=== PATIENT | male | born 1995 | race Caucasian/White ===

== ENCOUNTER 2016-04-01 05:39 | Emergency (ER) | payer BC ==
[~2016-04-01] VITALS: Ht 180.3 cm; Wt 110.0 kg
[~2016-04-01 05:39] MED LIST: ARIP2TAB3 PO; BUPRTAB51 PO; LITH600C PO; LTHSR/300 PO
[2016-04-01 05:45] VITALS: TEMP 37; Ht 180.3 cm; Wt 110.0 kg
[2016-04-01] MEDS ORDERED: SODIUM CHLORIDE 0.9% 1000ML 1,000 ML IV STA (05:50)
[2016-04-01] MEDS ORDERED: ALUMINUM/MAGNESIUM SUSP 30 ML UDC PO STA (05:50)
[2016-04-01] MEDS ORDERED: ONDANSETRON INJ 2 MG/ML 2 ML VIAL IV STA (05:50)
[2016-04-01] MEDS ORDERED: LIDOCAINE HCL 2% VISC SOLN 20 ML UDC PO STA (05:50)
[2016-04-01] MEDS ORDERED: ONDANSETRON HOME PACK 4MG OD TAB PO ONE (06:00)
[2016-04-01] MEDS ORDERED: ALPR-411 PO (06:12)
[2016-04-01] MEDS ORDERED: LAMO100T16 PO ×2 (06:13)
[2016-04-01 06:15] LABS: BASO % 0.2 %; BASO ABS # 0.03 K/uL (0-0.2); COMPLETE YES; EOS % 1.8 %; HEMATOCRIT 41.9 % (42-52); IG% 0.3 %; LYMPH ABS # 1.17 K/uL (1.2-3.4); MEAN CELL VOLUME 83.1 fL (80-100); MEAN CORPUSCULAR HEMOGLOBIN 28.6 pg (25-34); MEAN CORPUSCULAR HGB CONC 34.4 g/dl (32-36); MEAN PLATELET VOLUME 9.5 fL (7.4-10.4); MONO % 8.9 %; NEUT % 80.8 %; PLATELET COUNT 380 K/uL (130-400); RED BLOOD COUNT 5.04 M/uL (4.7-6.1); WHITE BLOOD COUNT 14.67 K/uL (4.8-10.8)
[2016-04-01 06:32] LABS: BUN/CREATININE RATIO 17.5 (10-20); CALCIUM 8.7 mg/dl (8.5-10.1); CREATININE 1.1 mg/dl (0.60-1.40); POTASSIUM 4.3 mmol/L (3.5-5.1)
--- NOTE | 2016-04-01 06:35 | EMERGENCY ROOM VISIT NOTE ---
History First contact with patient: 05:46 Chief Complaint: VOMITING Stated Complaint: NAUSEA/VOMITING History of Present Illness The patient is a 21 year old male who presents to the Emergency Room with complaints of nausea and vomiting and upset stomach for the past few hours. Patient denies chest pain, dyspnea, fever, chills, diarrhea, urinary symptoms, back pain. No recent antibiotics. Other people at the [facility] are sick. Review of Systems See HPI for pertinent positives & negatives. A total of 10 systems reviewed and were otherwise negative. Past Medical/Surgical History Bipolar Social History Smoking Status: Never Smoker Smokeless Tobacco Use: No Drug Use: none Marital Status: single Occupation Status: [employer] student Current/Historical Medications Scheduled Alprazolam (Xanax), 0.5 MG PO HS Bupropion Hcl (Wellbutrin Xl), 300 MG PO QAM Lamotrigine (Lamictal), 100 MG PO HS Lamotrigine (Lamictal), 50 MG PO QAM Allergies Coded Allergies: Cefadroxil (Verified Allergy, Mild, Rash, 04/01/16) Sulfamethoxazole w/Trimethoprim (Verified Allergy, Mild, Rash, 04/01/16) Physical Exam Vital Signs Date Time Temp Pulse Resp B/P Pulse Ox O2 Delivery O2 Flow Rate FiO2 04/01/16 05:45 37.0 104 18 153/90 96 Room Air Physical Exam VITALS: Vitals are noted on the nurse's note and reviewed by myself. Vital signs stable. GENERAL: Pleasant male, in no acute distress, nondiaphoretic, well-developed well-nourished. SKIN: The skin was without rashes, erythema, edema, or bruising. There is no tenting of the skin. Capillary reflex less than 2 seconds. HEAD: Normocephalic atraumatic. EARS: External auditory canals clear, tympanic membranes pearly daniels without erythema or effusion bilaterally. EYES: Pupils equal round and reactive to light and accommodation. Conjunctivae without injection, sclerae without icterus. Extraocular movements intact. NOSE: Patent, turbinates without inflammation or discharge. MOUTH: Mucous membranes mildly dry. Pharynx without erythema or exudate. Uvula midline. Airway patent. Tongue does not deviate. NECK: Supple without nuchal rigidity. No lymphadenopathy. No thyromegaly. Cervical spine is nontender. No JVD. HEART: Regular rate and rhythm without murmurs gallops or rubs. LUNGS: Clear to auscultation bilaterally without wheezes, rales or rhonchi. No dullness to percussion. No retractions or accessory muscle use. ABDOMEN: Positive bowel sounds x 4. Normal tympanic percussion. Soft, nontender, without masses or organomegaly. Gaytan sign negative. No guarding or rebound tenderness. MUSCULOSKELETAL: No muscle atrophy, erythema, or edema noted. NEURO: Patient was alert and oriented to person place and time. Normal sensation to light and sharp touch. No focal neurological deficits. Medical Decision & Procedures Laboratory Results 04/01/16 06:00 Red Blood Count 5.04, Mean Corpuscular Volume 83.1, Mean Corpuscular Hemoglobin 28.6, Mean Corpuscular Hemoglobin Concent 34.4, Mean Platelet Volume 9.5, Neutrophils (%) (Auto) 80.8, Lymphocytes (%) (Auto) 8.0, Monocytes (%) (Auto) 8.9, Eosinophils (%) (Auto) 1.8, Basophils (%) (Auto) 0.2, Neutrophils # (Auto) 11.87, Lymphocytes # (Auto) 1.17, Monocytes # (Auto) 1.30, Eosinophils # (Auto) 0.26, Basophils # (Auto) 0.03 04/01/16 06:00 Test 04/01/16 06:00 White Blood Count 14.67 K/uL (4.8-10.8) Red Blood Count 5.04 M/uL (4.7-6.1) Hemoglobin 14.4 g/dL (14.0-18.0) Hematocrit 41.9 % (42-52) Mean Corpuscular Volume 83.1 fL (80-100) Mean Corpuscular Hemoglobin 28.6 pg (25-34) Mean Corpuscular Hemoglobin Concent 34.4 g/dl (32-36) Platelet Count 380 K/uL (130-400) Mean Platelet Volume 9.5 fL (7.4-10.4) Neutrophils (%) (Auto) 80.8 % Lymphocytes (%) (Auto) 8.0 % Monocytes (%) (Auto) 8.9 % Eosinophils (%) (Auto) 1.8 % Basophils (%) (Auto) 0.2 % Neutrophils # (Auto) 11.87 K/uL (1.4-6.5) Lymphocytes # (Auto) 1.17 K/uL (1.2-3.4) Monocytes # (Auto) 1.30 K/uL (0.11-0.59) Eosinophils # (Auto) 0.26 K/uL (0-0.5) Basophils # (Auto) 0.03 K/uL (0-0.2) RDW Standard Deviation 39.0 fL (36.4-46.3) RDW Coefficient of Variation 13.1 % (11.5-14.5) Immature Granulocyte % (Auto) 0.3 % Immature Granulocyte # (Auto) 0.04 K/uL (0.00-0.02) Anion Gap 8.0 mmol/L (3-11) Est Creatinine Clear Calc Drug Dose 135.1 ml/min Estimated GFR () 111.4 Estimated GFR (Non- 96.1 BUN/Creatinine Ratio 17.5 (10-20) Calcium Level 8.7 mg/dl (8.5-10.1) Medications Administered Medications (Trade) Dose Ordered Sig/Elis Route Start Time Stop Time Status Last Admin Dose Admin Sodium Chloride (Nss 1000ml) 1,000 ml @ 999 mls/hr Q1H1M STAT IV 04/01/16 05:50 04/01/16 06:50 04/01/16 06:01 999 MLS/HR Ondansetron HCl (Zofran Inj) 4 mg NOW STAT IV 04/01/16 05:50 04/01/16 05:51 DC 04/01/16 06:01 4 MG Lidocaine HCl (Viscous Lidocaine 2% Soln) 10 ml NOW STAT PO 04/01/16 05:50 04/01/16 05:52 DC 04/01/16 06:00 10 ML Al Hydroxide/Mg Hydroxide (Maalox Susp) 30 ml NOW STAT PO 04/01/16 05:50 04/01/16 05:52 DC 04/01/16 06:00 30 ML Ondansetron HCl (ZOFRAN ODT 4MG Home Pack) 1 homepack UD ONCE PO 04/01/16 06:00 04/01/16 06:01 DC 04/01/16 06:00 1 HOMEPACK ED Course Prior records/ancillary studies reviewed. Triage Nursing notes reviewed. The patient's history was concerning for nausea, vomiting Differential diagnosis: Etiologies such as gastritis, anxiety, food borne illness, infections, appendicitis, diverticulitis, inflammatory bowel disease, obstruction, GI bleed , biliary pathology, as well as others were entertained. Physical examination findings: As above. Abdominal examination revealed no tenderness. Vital signs reviewed and revealed stable. ER treatment provided: IV hydration 1 L NSS. Zofran, GI cocktail On reassessment the patient felt better. Patient was tolerating p.o. intake. Diagnostics interpretation by me: The labs revealed leukocytosis, most likely marginalization from vomiting. No worrisome electrolyte abnormality This appears to be consistent with vomiting most likely viral in etiology. Patient felt much better after being medicated as above. He did not have an acute abdomen on exam. He is tolerating fluids. He is advised to do clear liquid diet today and then progress as tolerated to bland diet tomorrow. He was advised to follow-up health services in a few days or here in the ER sooner for high fevers, vomiting, abdominal pain, worsening signs or symptoms or as needed.. By the evaluation outlined above emergent etiologies such as appendicitis, diverticulitis, obstruction, cardiac sources, mesenteric ischemia , aortic pathology, inflammatory bowel disease, renal colic, PUD, biliary pathology, UTI, as well as others were deemed relatively unlikely. The pt informed about the findings as listed above. All questions were answered and pleased with the treatment. Return instructions were outlined and the patient was discharged in stable condition. Outpatient prescription management: zofran Referral: The patient was referred to their primary care physician for follow-up in 2 to 3 days for a recheck of the current condition. Medical Decision As above Impression Primary Impression: Vomiting Departure Information Dispostion Home / Self-Care Condition GOOD Referrals [facility] (PCP) Patient Instructions My [facility] Additional Instructions DO NOT drive, drink alcohol, operate machinery, or perform dangerous activities today. You were given medications in the ER that can affect your ability to safely function or operate a vehicle. Zofran(odansetron) tablets 4mg: Take one and allow it to dissolve in your mouth every four to six hours as needed for nausea or vomiting. Rest and drink plenty of fluids as tolerated. Slow sips of water or sports drinks are recommended instead of large amounts all at once. Continue current medications. Once your stomach is settled start with a clear liquid diet (jello, soup broth, etc.) and then advance as tolerated. You should avoid full, heavy meals for about 24 hrs from the time your symptoms resolved. Return to the ER for persistent vomiting, fevers, abdominal pain, chest pains, difficulty breathing, black or bloody stools, worsening of your condition, or as needed. Follow up with your primary physician in 2-3 days for a recheck of your current condition. Problem Qualifiers Primary Impression: Vomiting Vomiting type: unspecified Vomiting Intractability: non-intractable Nausea presence: with nausea Qualified Codes: R11.2 - Nausea with vomiting, unspecified
[2016-04-01 06:48] VITALS: BP 147/85; PULSE 94; O2SAT 99
[2016-04-01] MEDS ORDERED: ONDA4TAB10 SL (21:30)
== END 2016-04-01 06:50 | disposition home or self-care (01) ==
LOC: C.EDA 05:39 → EDBD 05:39 → C.EDA 06:50
DX: R11.10 Vomiting, unspecified (principal); F31.9 Bipolar disorder, unspecified; Z79.899 Other long term (current) drug therapy; Z88.2 Allergy status to sulfonamides; Z88.8 Allergy status to other drugs, medicaments and biological substances

== ENCOUNTER 2016-04-01 20:33 | Emergency (ER) | payer BC ==
[~2016-04-01] VITALS: Ht 180.3 cm; Wt 110.7 kg
[~2016-04-01 20:33] MED LIST changes: +ALPR-411 PO; +LAMO100T16 PO
[2016-04-01 20:49] VITALS: Ht 180.3 cm; Wt 110.7 kg
[2016-04-01] MEDS ORDERED: ONDA4TAB10 SL (21:30)
[2016-04-01] MEDS ORDERED: IBUPROFEN 800 MG TAB PO STA (21:42)
[2016-04-01] MEDS ORDERED: ACETAMINOPHEN 500 MG TAB PO STA (21:42)
[2016-04-01] MEDS ORDERED: ONDANSETRON 4MG OD TAB PO ONE (21:45)
[2016-04-01] MEDS ORDERED: IBUPROFEN 200 MG TAB ONE (21:50)
[2016-04-01] MEDS ORDERED: IBUPROFEN 600 MG TAB ONE (21:51)
[2016-04-01 22:02] VITALS: TEMP 38.5
[2016-04-01 23:48] VITALS: BP 130/64; PULSE 89; O2SAT 98
[2016-04-01 23:56] LABS: INFLUENZA A PCR Neg for Influ A (NEG); INFLUENZA B PCR Neg for Influ B (NEG)
--- NOTE | 2016-04-02 00:10 | EMERGENCY ROOM VISIT NOTE ---
History First contact with patient: 21:27 Chief Complaint: ILLNESS Stated Complaint: REVISIT FROM EARLIER TODAY; NAUSEA, CHILLS, DIZZ History of Present Illness The patient is a 21 year old male who presents to the Emergency Room with complaints of nausea, fever, lightheadedness for the past day. Patient states he did not take the Zofran from this morning. He felt much better after being discharged this morning until tonight he felt nauseous and lightheaded and had a fever. He did not take anything for his symptoms. He was discharged with Zofran. Patient states he was unsure if he should take this or not. Patient denies current vomiting, chest pain, dyspnea, abdominal pain, diarrhea, neck stiffness, sore throat, cough. Review of Systems See HPI for pertinent positives & negatives. A total of 10 systems reviewed and were otherwise negative. Past Medical/Surgical History Bipolar, anxiety, depression Social History Smoking Status: Never Smoker Drug Use: none Marital Status: single Occupation Status: [employer] student Current/Historical Medications Scheduled Alprazolam (Xanax), 0.5 MG PO HS Bupropion Hcl (Wellbutrin Xl), 300 MG PO QAM Lamotrigine (Lamictal), 100 MG PO HS Lamotrigine (Lamictal), 50 MG PO QAM Scheduled PRN Ondasetron Odt (Zofran Odt), 4 MG SL Q4-6HRS PRN for Nausea Allergies Coded Allergies: Cefadroxil (Verified Allergy, Mild, Rash, 04/01/16) Sulfamethoxazole w/Trimethoprim (Verified Allergy, Mild, Rash, 04/01/16) Physical Exam Vital Signs Date Time Temp Pulse Resp B/P Pulse Ox O2 Delivery O2 Flow Rate FiO2 04/01/16 23:48 89 20 130/64 98 Room Air 04/01/16 22:02 38.5 105 20 119/59 96 Room Air 04/01/16 20:49 38.3 126 22 130/75 97 Room Air Physical Exam VITALS: Vitals are noted on the nurse's note and reviewed by myself. Vital signs febrile GENERAL: Pleasant male drinking water, in no acute distress, nondiaphoretic, well-developed well-nourished. SKIN: The skin was without rashes, erythema, edema, or bruising. There is no tenting of the skin. Capillary reflex less than 2 seconds. HEAD: Normocephalic atraumatic. EARS: External auditory canals clear, tympanic membranes pearly daniels without erythema or effusion bilaterally. EYES: Pupils equal round and reactive to light and accommodation. Conjunctivae without injection, sclerae without icterus. Extraocular movements intact. NOSE: Patent, turbinates without inflammation or discharge. No sinus tenderness. MOUTH: Mucous membranes mildly dry. Pharynx without erythema or exudate. Uvula midline. Airway patent. Tongue does not deviate. NECK: Supple without nuchal rigidity. No lymphadenopathy. No thyromegaly. Cervical spine is nontender. No JVD. HEART: Regular rate and rhythm without murmurs gallops or rubs. LUNGS: Clear to auscultation bilaterally without wheezes, rales or rhonchi. No dullness to percussion. No retractions or accessory muscle use. ABDOMEN: Positive bowel sounds x 4. Normal tympanic percussion. Soft, nontender, without masses or organomegaly. Gaytan sign negative. No guarding or rebound tenderness. MUSCULOSKELETAL: No muscle atrophy, erythema, or edema noted. NEURO: Patient was alert and oriented to person place and time. Normal sensation to light and sharp touch. No focal neurological deficits. Medical Decision & Procedures Laboratory Results Test 04/01/16 21:45 Influenza Type A (RT-PCR) Neg for Influ A (NEG) Influenza Type A Antigen Neg for Influ A (NEG) Influenza Type B Antigen Neg for Influ B (NEG) Influenza Type B (RT-PCR) Neg for Influ B (NEG) Medications Administered Medications (Trade) Dose Ordered Sig/Elis Route Start Time Stop Time Status Last Admin Dose Admin Acetaminophen (Tylenol Tab) 1,000 mg NOW STAT PO 04/01/16 21:42 04/01/16 21:43 DC 04/01/16 21:55 1,000 MG Ondansetron HCl (Zofran Odt) 4 mg ONE ONCE PO 04/01/16 21:45 04/01/16 21:46 DC 04/01/16 21:57 4 MG Ibuprofen (Advil Tab) 200 mg STK-MED ONCE .ROUTE 04/01/16 21:50 04/01/16 21:53 DC 04/01/16 21:56 200 MG Ibuprofen (Motrin Tab) 600 mg STK-MED ONCE .ROUTE 04/01/16 21:51 04/01/16 21:53 DC 04/01/16 21:57 600 MG ED Course Prior records/ancillary studies reviewed. Triage Nursing notes reviewed. Additional history obtained from friends The patient's history was concerning for fever. Differential diagnosis: Etiologies such as viral syndrome, otitis, pharyngitis, pneumonia, influenza, meningitis, urinary tract infection, sepsis, bacteremia, as well as others were entertained. Physical examination: Patient is alert, interactive and well-appearing ER treatment provided: Tylenol, Motrin, Gatorade, Zofran On reassessment the patient felt better. Diagnostics interpreted by me: The labs revealed neg flu This appears to be consistent with fever most likely viral in etiology. Patient was well-appearing. He was tolerating fluids. No signs of meningitis. He did not have an acute abdomen on exam. He was advised to take medications as directed, stay well-hydrated and to follow-up with health services in a few days or here in the ER sooner for high fevers, lethargy, vomiting, worsening signs or symptoms or as needed. By the evaluation outlined above emergent etiologies such as otitis, pharyngitis, pneumonia, meningitis, urinary tract infection, sepsis, bacteremia, as well as others were deemed relatively unlikely. The pt informed about the findings as listed above. All questions were answered and pleased with the treatment. Return instructions were outlined and the patient was discharged in stable condition. Outpatient prescription management: Zofran Referral: The patient was referred back to their primary care physician for follow-up in 2 to 3 days for a recheck of the current condition. Medical Decision as above Impression Primary Impression: Fever Additional Impression: Nausea Departure Information Dispostion Home / Self-Care Condition GOOD Referrals [facility] (PCP) Patient Instructions [facility] Additional Instructions Zofran(odansetron) tablets 4mg: Take one and allow it to dissolve in your mouth every four to six hours as needed for nausea or vomiting. Acetaminophen(Tylenol) may be used for fever or pain. Use 1000mg every six hours as needed. Avoid using more than 3000mg in a 24 hour period. (AND/OR) Ibuprofen(Motrin, Advil) may be used for fever or pain. Use 600mg every six hours as needed. Take with food. Avoid using more than 2400mg in a 24 hour period. Do not use 2400mg per day for more than three consecutive days without physician direction. Prolonged inappropriate use can lead to stomach upset or ulcers. Rest and drink plenty of fluids. Controlling your fever with Tylenol and Ibuprofen as above will make you feel better. Wash your hands after nose blowing, sneezing, or coughing. Most germs are spread through contact, therefore improper hygiene may result in your close contacts and loved ones becoming ill just like you. Continue current medications. Return to the ER for severe headache, neck stiffness, chest pain, difficulty breathing, fevers, vomiting, worsening of your condition, or as needed. Follow up with your primary physician this week for a recheck of your current condition. Problem Qualifiers Primary Impression: Fever Fever type: unspecified Qualified Codes: R50.9 - Fever, unspecified
[2016-04-02] MEDS ORDERED: ONDANSETRON HOME PACK 4MG OD TAB PO ONE (00:15)
== END 2016-04-02 00:18 | disposition home or self-care (01) ==
LOC: C.EDB 20:34 → C.EDC 04-02 00:18
DX: R50.9 Fever, unspecified (principal); R11.0 Nausea; F31.9 Bipolar disorder, unspecified; F41.9 Anxiety disorder, unspecified; Z79.899 Other long term (current) drug therapy

== ENCOUNTER 2018-07-18 16:17 | Inpatient (IN) ==
[2018-07-18 17:43] LABS: Basophils # (auto) 0.06 K/uL (0-0.2); Basophils % (auto) 0.7 %; Eosinophils # (auto) 0.37 K/uL (0-0.5); Hematocrit (blood only) 40.4 % (42-52); Hemoglobin 13.9 g/dL (14.0-18.0); Immature Granulocytes # (auto) 0.04 K/uL (0.00-0.02); Immature Granulocytes % (auto) 0.4 %; Lymphocytes % (auto) 34.7 %; Mean Corpuscular Hgb Conc 34.4 g/dL (32-36); Mean Corpuscular Volume 83.3 fL (80-100); Mean Platelet Volume 9.5 fL (7.4-10.4); Monocytes # (auto) 0.83 K/uL (0.11-0.59); Neutrophils # (auto) 4.72 K/uL (1.4-6.5); Neutrophils % (auto) 51.2 %; Platelet Count 397 K/uL (130-400); RDW Standard Deviation 39.1 fL (36.4-46.3); Red Blood Count 4.85 M/uL (4.7-6.1); White Blood Count 9.22 K/uL (4.8-10.8)
[2018-07-18 17:48] LABS: Appearance Urine Clear (Clear); Bilirubin Urine Negative (Negative); Blood Urine Negative (Negative); Color Urine Yellow; Glucose Urine UA Negative (Negative); Ketones Urine Negative (Negative); Leukocyte Esterase Urine Negative (Negative); Nitrite Urine Negative (Negative); Protein Urine Negative (Negative); Specific Gravity Urine 1.018 (1.000-1.030); Urobilinogen Urine Negative (Negative); pH Urine 5.5 (4.5-7.5)
[2018-07-18 18:00] LABS: BUN Creatinine Ratio 14.9 (10-20); C Reactive Protein 1.12 mg/dl (0-0.29); Calcium 9.2 mg/dl (8.5-10.1); Est GFR (African American) 124.8; Est GFR (Non-African American) 107.7; Magnesium 2.3 mg/dl (1.8-2.4); Potassium 4.2 mmol/L (3.5-5.1)
[2018-07-18 18:14] LABS: Albumin Globulin Ratio 1.1 (0.9-2); Bilirubin,Total 0.2 mg/dl (0.2-1); Globulin 3.8 gm/dl (2.5-4.0); Total Protein 7.8 gm/dl (6.4-8.2)
[2018-07-18] MEDS ORDERED: SODIUM CHLORIDE 0.9% 1000ML 2,000 ML IV ONE (18:53)
[2018-07-18] MEDS ORDERED: SODIUM CHLORIDE 0.9% 1000ML 1,000 ML IV STA (18:53)
[2018-07-18 19:16] LABS: Lyme Ab IgG w/WB Rflx Negative (Negative); Lyme Ab IgM w/WB Rflx Negative (Negative)
[2018-07-18] MEDS ORDERED: ALBUTEROL HFA 8 GM INHALER INH PRN (20:00)
--- NOTE | 2018-07-18 20:38 | History & Physical Report ---
Date of Service July 18, 2018 Assessment & Plan (1) Rhabdomyolysis: Patient is a [facility] 23yo M PMH bipolar, anxiety, obesity, who presents with lower leg pain, admitted for rhabdomyolysis in the setting of psychiatric med use, nonspecific EKG changes. Rhabdoymyolysis -Mild, NSS @200/hr -Repeat CK in AM -Tylenol for pain -Unlikely to be related to lupus, pt has no other symptoms of lupus...will send ARJUN and Antiphospholipid antibodies in AM Anxiety/Bipolar -Continue bupropion, hydroxyzine, lamictal Non-specific EKG changes -Appears chronic, denies chest pain, no friction rub noted on exam -Repeat EKG ordered for tomorrow AM Code: full Dispo: med/surg DVTP: ambulation, consider SCDs if pt unable to ambulate (2) Anxiety: (3) Bipolar disorder: (4) Nonspecific ST-T wave electrocardiographic changes: History of Present Illness Chief Complaint: Leg pain Primary Care Provider: [facility] Patient is a [facility] 23yo M [facility] bipolar, anxiety, obesity, who presents with lower leg pain for 2 months. He presented today due to increasing pain on anterior shins from his knee to the top of his feet. He notes this is worsened with activity (walking). He does note some LUE generalized pain as well. Denies trauma to the area. He notes that he is being weaned from lamictal and that his psychiatrist recommended he present to the ER for concerns of drug-induced lupus. Labwork revealed an elevated CK of 1200, CRP of 1.12, and normal LFTs. He denies dark urine. He states this is his 3rd episode of rhabdomyolysis in the past 7 months, and was told by psychiatrist that his gabapentin was previously the cause of this, which he is no longer taking. Allergies Allergy/AdvReac Type Severity Reaction Status Date / Time Bactrim Allergy Mild Rash Verified 04/01/16 06:09 cefadroxil Allergy Mild Rash Verified 07/18/18 17:45 sulfamethoxazole Allergy Mild Rash Verified 07/18/18 17:45 trimethoprim Allergy Mild Rash Verified 07/18/18 17:45 gabapentin AdvReac Severe rhabdomyoly Unverified 07/18/18 17:45 [facility] Home Medications Home Medications Medication Instructions Recorded Confirmed Type hydroxyzine pamoate [Vistaril] 100 mg PO HS PRN 11/25/17 07/18/18 History lamotrigine [Lamictal] 100 mg PO BID 11/25/17 07/18/18 History albuterol sulfate 1 inha INH Q6H #8 gm 12/12/17 07/18/18 Rx bupropion HCl 300 mg PO QAM 12/12/17 07/18/18 History lurasidone [Latuda] 40 mg PO HS 07/18/18 07/18/18 History Past Med/Surg History Medical History Anxiety Abnormal LFTs Rhabdomyolysis (Acute) Hx of bipolar disorder Hx of bronchitis Hx of recurrent pneumonia No acute medical problems No significant past surgical history Family History Other No significant family history Social History Preferred Language: Sami Communication Ability: Effective Community Relations Rep Required: No Beliefs That Will Affect Care: None Current Living Situation: Other Current Living Situation Comment: [facility] with one roommate Other Information That Helps Us Care for You: No Feels Safe at Home: Yes Safety Concerns: Feels Safe At This Time Smoking Status: Never smoker Do You Dip or Chew Tobacco: No Second Hand Exposure: No Hx Alcohol Use: No (quit in August 2017) Hx Substance Use: No Review of Systems Review of Systems: All systems reviewed & are unremarkable except as noted in HPI & below Constitutional: + chills and + body aches; no fever Eyes: no diplopia, no dry eyes and no spots in vision Ear, Nose, Mouth, Throat: no mouth lesions, no dry mouth, no dental caries and no pain with swallowing Respiratory: no cough, no chest congestion and no dyspnea Cardiovascular: no chest pain, no radiating jaw, neck or arm pain, no dyspnea and no calf pain Gastrointestinal: no abdominal pain, no bloating, no nausea, no vomiting and no change in bowel habits Genitourinary: no hematuria Musculoskeletal: + myalgia; no back pain Integumentary: no lesions, no sores and no erythema Neurologic: no unsteadiness, no falls, no numbness, no headache(s) and no confusion Psychiatric: + anxiety Physical Exam Constitutional: WD/WN, vitals as above + morbidly obese, cooperative and comfortable; no acute distress, not in distress and not diaphoretic Eyes: PERRL, conjunctivae normal, anicteric sclerae ENMT: external ear and nose normal, oropharynx normal Neck: normal visual inspection Respiratory: normal respiratory effort, lungs clear to auscultation Cardiovascular: RRR, no murmur, no edema Gastrointestinal (Abdomen): normal bowel sounds, soft, nontender, no hepatosplenomegaly Inspection/Auscultation: + abdomen distended Skin: no rashes, warm and dry no lesions, no subcutaneous nodules and no erythema Neurologic: PERRL, EOMI, accommodation nl, no face palsy, no dysarthria Psychiatric: A+Ox3, euthymic affect Results & Data Vital Signs (Past 12 Hours) Vital Signs Temp Pulse Pulse Resp BP BP Pulse Ox 07/18/18 20:00 79 18 139/92 100 07/18/18 18:39 79 17 129/75 98 07/18/18 17:24 97 07/18/18 16:29 36.8 C 88 17 143/89 H 98 Laboratory Results 07/18/18 07/18/18 07/18/18 Range/Units 17:20 17:20 17:20 WBC (4.8-10.8) K/uL RBC (4.7-6.1) M/uL Hgb (14.0-18.0) g/dL Hct (42-52) % MCV (80-100) fL MCH (25-34) pg MCHC (32-36) g/dL RDW Std Deviation (36.4-46.3) fL RDW Coeff of Yanelis (11.5-14.5) % Plt Count (130-400) K/uL MPV (7.4-10.4) fL Immature Gran % (Auto) % Neut % (Auto) % Lymph % (Auto) % [place] % (Auto) % Eos % (Auto) % Baso % (Auto) % Immature Gran # (Auto) (0.00-0.02) K/uL Neut # (Auto) (1.4-6.5) K/uL Lymph # (Auto) (1.2-3.4) K/uL [place] # (Auto) (0.11-0.59) K/uL Eos # (Auto) (0-0.5) K/uL Baso # (Auto) (0-0.2) K/uL ESR (0-14) mm/hr Sodium 140 (136-145) mmol/L Potassium 4.2 (3.5-5.1) mmol/L Chloride 106 (98-107) mmol/L Carbon Dioxide 27 (21-32) mmol/L Anion Gap 7.0 (3-11) BUN 15 (7-18) mg/dl Creatinine 0.99 (0.6-1.4) mg/dl Est Cr Clr Drug Dosing 148.0 ml/min Est GFR ( Amer) 124.8 Est GFR (Non-Af Amer) 107.7 BUN/Creatinine Ratio 14.9 (10-20) Glucose 79 (70-99) mg/dl Calcium 9.2 (8.5-10.1) mg/dl Magnesium 2.3 (1.8-2.4) mg/dl Total Bilirubin 0.2 (0.2-1) mg/dl AST 37 (15-37) U/L ALT 35 (12-78) U/L Alkaline Phosphatase 104 (45-117) U/L Total Creatine Kinase 1201 H (39-308) U/L C-Reactive Protein 1.12 H (0-0.29) mg/dl Total Protein 7.8 (6.4-8.2) gm/dl Albumin 4.0 (3.4-5.0) gm/dl Globulin 3.8 (2.5-4.0) gm/dl Albumin/Globulin Ratio 1.1 (0.9-2) TSH 2.010 (0.300-4.500) uIu/ml Urine Color Yellow Urine Appearance Clear (Clear) Urine pH 5.5 (4.5-7.5) Ur Specific [place] 1.018 (1.000-1.030) Urine Protein Negative (Negative) Urine Glucose (UA) Negative (Negative) Urine Ketones Negative (Negative) Urine Blood Negative (Negative) Urine Nitrite Negative (Negative) Urine Bilirubin Negative (Negative) Urine Urobilinogen Negative (Negative) Ur Leukocyte Esterase Negative (Negative) Lyme Disease IgG Ab Negative (Negative) Lyme Disease IgM Ab Negative (Negative) 07/18/18 07/18/18 Range/Units 17:20 17:20 WBC 9.22 (4.8-10.8) K/uL RBC 4.85 (4.7-6.1) M/uL Hgb 13.9 L (14.0-18.0) g/dL Hct 40.4 L (42-52) % MCV 83.3 (80-100) fL MCH 28.7 (25-34) pg MCHC 34.4 (32-36) g/dL RDW Std Deviation 39.1 (36.4-46.3) fL RDW Coeff of Yanelis 13.0 (11.5-14.5) % Plt Count 397 (130-400) K/uL MPV 9.5 (7.4-10.4) fL Immature Gran % (Auto) 0.4 % Neut % (Auto) 51.2 % Lymph % (Auto) 34.7 % [place] % (Auto) 9.0 % Eos % (Auto) 4.0 % Baso % (Auto) 0.7 % Immature Gran # (Auto) 0.04 H (0.00-0.02) K/uL Neut # (Auto) 4.72 (1.4-6.5) K/uL Lymph # (Auto) 3.20 (1.2-3.4) K/uL [place] # (Auto) 0.83 H (0.11-0.59) K/uL Eos # (Auto) 0.37 (0-0.5) K/uL Baso # (Auto) 0.06 (0-0.2) K/uL ESR 8 (0-14) mm/hr Sodium (136-145) mmol/L Potassium (3.5-5.1) mmol/L Chloride (98-107) mmol/L Carbon Dioxide (21-32) mmol/L Anion Gap (3-11) BUN (7-18) mg/dl Creatinine (0.6-1.4) mg/dl Est Cr Clr Drug Dosing ml/min Est GFR ( Amer) Est GFR (Non-Af Amer) BUN/Creatinine Ratio (10-20) Glucose (70-99) mg/dl Calcium (8.5-10.1) mg/dl Magnesium (1.8-2.4) mg/dl Total Bilirubin (0.2-1) mg/dl AST (15-37) U/L ALT (12-78) U/L Alkaline Phosphatase (45-117) U/L Total Creatine Kinase (39-308) U/L C-Reactive Protein (0-0.29) mg/dl Total Protein (6.4-8.2) gm/dl Albumin (3.4-5.0) gm/dl Globulin (2.5-4.0) gm/dl Albumin/Globulin Ratio (0.9-2) TSH (0.300-4.500) uIu/ml Urine Color Urine Appearance (Clear) Urine pH (4.5-7.5) Ur Specific [place] (1.000-1.030) Urine Protein (Negative) Urine Glucose (UA) (Negative) Urine Ketones (Negative) Urine Blood (Negative) Urine Nitrite (Negative) Urine Bilirubin (Negative) Urine Urobilinogen (Negative) Ur Leukocyte Esterase (Negative) Lyme Disease IgG Ab (Negative) Lyme Disease IgM Ab (Negative) Code Status & VTE Plan Code Status full VTE Prophylaxis Plan VTE Prophylaxis will be ordered: No Reason for no VTE drug order: Treatment not indicated (recommend ambulation) Supervising Physician Co-Signing Physician Notes Attending addendum: I have physically seen this patient, have supervised the medical residents activities, and agree with the H&P unless as otherwise noted. Assessment and Plan: Rhabdomyolysis, recurrent- Milder than his previous episodes with CK at 1201. NSS at 200 mils per hour. Repeat CK and BMP in the a.m. Acetaminophen 650 mg p.o. every 6 hours as needed. Bipolar disorder with anxiety- Continue bupropion, hydroxyzine and Lamictal. Nonspecific EKG changes/could be consistent with pericarditis, however, no symptoms- Order echocardiogram. Remainder of orders and notations as noted. Resident Activity Tracking Resident Involvement: Resident Care Provided Care Provided: Adult Hospital Medicine (1) Rhabdomyolysis Rhabdomyolysis type: non-traumatic Qualified Code(s): M62.82 - Rhabdomyolysis
[2018-07-18] MEDS ORDERED: MAGNESIUM HYDROXIDE SUSP 30 ML UDC PO PRN (21:04)
[2018-07-18] MEDS ORDERED: ONDANSETRON INJ 2 MG/ML 2 ML VIAL IV PRN (21:04)
[2018-07-18] MEDS ORDERED: ALUMINUM/MAGNESIUM SUSP 30 ML UDC PO PRN (21:04)
[2018-07-18] MEDS ORDERED: ACETAMINOPHEN 325 MG TAB PO PRN (21:04)
[2018-07-18] MEDS ORDERED: POLYETHYLENE (MIRALAX) 17 GM PACK PO PRN (21:04)
[2018-07-18] MEDS: LURASIDONE HCL 40 MG TAB PO SCH (21:49)
[2018-07-18] MEDS: lamoTRIgine 100 MG TAB PO SCH (21:49)
[2018-07-18] MEDS: SODIUM CHLORIDE 0.9% 1000ML 1,000 ML IV SCH (21:50)
--- NOTE | 2018-07-19 00:17 | Emergency Department Note ---
Entered by Lydia Donaldson acting as a scribe for ED Provider Note CHIEF COMPLAINT: Body aches HISTORY OF PRESENT ILLNESS: The patient is a 23 year old male who presents to the Emergency Room with complaints of worsening body aches that began several days prior to arrival. The patient states that he has aches in his arms, legs, and feet. The patient states that this is similar to prior episodes of Rhabdomyolysis. The patient states that he has had this two times, and states that one of these episodes was believed to be due to Gabapentin. The patient states that he has pain in his muscles currently, and denies pain in his joints. The patient states that he had an appointment with his psychiatrist last week, and states that his psychiatrist believes that he has a form of lupus due to his lamictal prescription. The patient states that he began to taper his lamictal after his psychiatrist advised him to do so. The patient denies any recent heavy lifting or exercising. He states that his pain is exacerbated with movement. The patient denies treatments prior to arrival. The patient reports recent chills. The patient states that he has had intermittent bloody stools over the past several weeks. Pt denies LOC, headache, fevers, diaphoresis, visual changes, neck pain, chest pain, breathing difficulties, nausea, vomiting, abdominal pain, back pain, urinary symptoms, numbness, weakness, lymphadenopathy, rash, or other comp laints. REVIEW OF SYSTEMS: See HPI for pertinent positives and negatives. A total of ten systems were reviewed and were otherwise negative. PMHx/PSHx: Bipolar disorder Rhabdomyolysis SOCIAL HISTORY: Patient lives at home. PHYSICAL EXAM: GENERAL: Awake, alert, well-appearing, in no distress HENT: Normocephalic, atraumatic. Oropharynx unremarkable. EYES: PERRL. Normal conjunctiva. Sclera non-icteric. NECK: Inspection normal. Non-tender. Supple. No nuchal rigidity. FROM. No masses. RESPIRATORY: Clear to auscultation. No wheezes. No rales. Normal respiratory effort. CARDIAC: Normal rate. Normal rhythm. No murmurs. No rubs. Extremities warm and well perfused. Pulses equal. No JVD. GI: Soft, non-distended. No tenderness to palpation. No rebound or guarding. No masses. RECTAL: Deferred. MUSCULOSKELETAL: Atraumatic. Chest examination reveals no tenderness. The back is symmetrical on inspection without obvious abnormality. There is no CVA tenderness to palpation. No joint edema. LOWER EXTREMITIES: Calves are equal size bilaterally and non-tender. No edema. No discoloration. NEURO: Normal sensorium. No sensory or motor deficits noted. SKIN: No rash or jaundice noted. EMERGENCY DEPARTMENT COURSE: 1720: Past medical records reviewed. The patient was evaluated in room B12B, and a complete history and physical examination were performed. 1854: I checked on and updated the patient. 1912: I discussed the case with Dr. [facility] Hospitalist who accepts the patient for further evaluation. MEDICAL DECISION MAKING: Prior records/ancillary studies reviewed. The patient's last visit for extremity discomfort showed that he had mild rhabdomyolysis but did not require admission. His total CK at that time was around 600. Nursing notes reviewed and agree them. The patient's history was concerning for extremity pain. Differential diagnosis: Etiologies such as rhabdomyolysis, complication of medication use, metabolic, infection, hypo/hyperglycemia, electrolyte abnormalities, cardiac sources, intracerebral event, toxicologic, neurologic, as well as others were entertained. Physical examination: As above. ER treatment provided: IV Lock Saline hydration, 2 L bolus and 200 mL an hour IV On reassessment the patient felt better. Diagnostics interpretation by me: ECG: No acute changes. The labs revealed an unremarkable CBC and chemistry panel. The patient was found to have an elevated total CK over 1200 concerning for rhabdomyolysis. Urinalysis unremarkable. Imaging studies: Deferred Consultation: A consultation was placed with the hospitalist. The case was discussed and diagnostics were reviewed. The patient was evaluated in the ER for further treatment. IMPRESSION: Rhabdomyolysis Arm and leg pain PLAN: Admit The scribe's documentation has been prepared under my direction and personally reviewed by me in its entirety. I confirm that the note above accurately reflects all work, treatment, procedures, and medical decision making performed by me. Impression & Plan Rhabdomyolysis, Arm and leg pain Past Med/Surg History Medical History Anxiety Abnormal LFTs Rhabdomyolysis (Acute) Hx of bipolar disorder Hx of bronchitis Hx of recurrent pneumonia No acute medical problems No significant past surgical history Family History Other No significant family history Social History Preferred Language: Wolof Communication Ability: Effective Horse Rancher Required: No Beliefs That Will Affect Care: None Current Living Situation: Other Current Living Situation Comment: [facility] with one roommate Other Information That Helps Us Care for You: No Feels Safe at Home: Yes Safety Concerns: Feels Safe At This Time Smoking Status: Never smoker Do You Dip or Chew Tobacco: No Second Hand Exposure: No Hx Alcohol Use: No (quit in August 2017) Hx Substance Use: No Results & Data Vital Signs Vital Signs - 24 hr 07/18/18 16:29 07/18/18 17:24 07/18/18 18:39 Temperature 36.8 C Temperature Source Oral Sepsis Recent Fever Within 48 Hours No Sepsis New/Unexplained Change in Mental Status No Sepsis Action Taken by Nursing No Action Required Pulse Rate 88 Pulse Rate [Finger] 79 Respiratory Rate 17 17 Respiratory Effort / Characteristics Non-Labored Respiratory Depth Normal Respiratory Pattern Regular Blood Pressure 143/89 H Blood Pressure [Right Arm] 129/75 Blood Pressure Mean 107 Blood Pressure Mean [Right Arm] 93 Blood Pressure Position Sitting Pulse Oximetry 98 97 98 Oxygen Delivery Method Room Air Room Air Room Air 07/18/18 20:00 Temperature Temperature Source Sepsis Recent Fever Within 48 Hours Sepsis New/Unexplained Change in Mental Status Sepsis Action Taken by Nursing Pulse Rate Pulse Rate [Finger] 79 Respiratory Rate 18 Respiratory Effort / Characteristics Respiratory Depth Respiratory Pattern Blood Pressure Blood Pressure [Right Arm] 139/92 Blood Pressure Mean Blood Pressure Mean [Right Arm] 107 Blood Pressure Position Pulse Oximetry 100 Oxygen Delivery Method Room Air Home Medications Current Medication List: was personally reviewed by me Laboratory Data Attestation: I reviewed the patient's lab results. Result diagrams: 07/18/18 17:20 07/18/18 17:20 Lab Results 07/18/18 07/18/18 07/18/18 Range/Units 17:20 17:20 17:20 WBC 9.22 (4.8-10.8) K/uL RBC 4.85 (4.7-6.1) M/uL Hgb 13.9 L (14.0-18.0) g/dL Hct 40.4 L (42-52) % MCV 83.3 (80-100) fL MCH 28.7 (25-34) pg MCHC 34.4 (32-36) g/dL RDW Std Deviation 39.1 (36.4-46.3) fL RDW Coeff of Yanelis 13.0 (11.5-14.5) % Plt Count 397 (130-400) K/uL MPV 9.5 (7.4-10.4) fL Immature Gran % (Auto) 0.4 % Neut % (Auto) 51.2 % Lymph % (Auto) 34.7 % [place] % (Auto) 9.0 % Eos % (Auto) 4.0 % Baso % (Auto) 0.7 % Immature Gran # (Auto) 0.04 H (0.00-0.02) K/uL Neut # (Auto) 4.72 (1.4-6.5) K/uL Lymph # (Auto) 3.20 (1.2-3.4) K/uL [place] # (Auto) 0.83 H (0.11-0.59) K/uL Eos # (Auto) 0.37 (0-0.5) K/uL Baso # (Auto) 0.06 (0-0.2) K/uL ESR 8 (0-14) mm/hr Sodium 140 (136-145) mmol/L Potassium 4.2 (3.5-5.1) mmol/L Chloride 106 (98-107) mmol/L Carbon Dioxide 27 (21-32) mmol/L Anion Gap 7.0 (3-11) BUN 15 (7-18) mg/dl Creatinine 0.99 (0.6-1.4) mg/dl Est Cr Clr Drug Dosing 148.0 ml/min Est GFR ( Amer) 124.8 Est GFR (Non-Af Amer) 107.7 BUN/Creatinine Ratio 14.9 (10-20) Glucose 79 (70-99) mg/dl Calcium 9.2 (8.5-10.1) mg/dl Magnesium 2.3 (1.8-2.4) mg/dl Total Bilirubin 0.2 (0.2-1) mg/dl AST 37 (15-37) U/L ALT 35 (12-78) U/L Alkaline Phosphatase 104 (45-117) U/L Total Creatine Kinase 1201 H (39-308) U/L C-Reactive Protein 1.12 H (0-0.29) mg/dl Total Protein 7.8 (6.4-8.2) gm/dl Albumin 4.0 (3.4-5.0) gm/dl Globulin 3.8 (2.5-4.0) gm/dl Albumin/Globulin Ratio 1.1 (0.9-2) TSH 2.010 (0.300-4.500) uIu/ml Urine Color Urine Appearance (Clear) Urine pH (4.5-7.5) Ur Specific [place] (1.000-1.030) Urine Protein (Negative) Urine Glucose (UA) (Negative) Urine Ketones (Negative) Urine Blood (Negative) Urine Nitrite (Negative) Urine Bilirubin (Negative) Urine Urobilinogen (Negative) Ur Leukocyte Esterase (Negative) Lyme Disease IgG Ab (Negative) Lyme Disease IgM Ab (Negative) 07/18/18 07/18/18 Range/Units 17:20 17:20 WBC (4.8-10.8) K/uL RBC (4.7-6.1) M/uL Hgb (14.0-18.0) g/dL Hct (42-52) % MCV (80-100) fL MCH (25-34) pg MCHC (32-36) g/dL RDW Std Deviation (36.4-46.3) fL RDW Coeff of Yanelis (11.5-14.5) % Plt Count (130-400) K/uL MPV (7.4-10.4) fL Immature Gran % (Auto) % Neut % (Auto) % Lymph % (Auto) % [place] % (Auto) % Eos % (Auto) % Baso % (Auto) % Immature Gran # (Auto) (0.00-0.02) K/uL Neut # (Auto) (1.4-6.5) K/uL Lymph # (Auto) (1.2-3.4) K/uL [place] # (Auto) (0.11-0.59) K/uL Eos # (Auto) (0-0.5) K/uL Baso # (Auto) (0-0.2) K/uL ESR (0-14) mm/hr Sodium (136-145) mmol/L Potassium (3.5-5.1) mmol/L Chloride (98-107) mmol/L Carbon Dioxide (21-32) mmol/L Anion Gap (3-11) BUN (7-18) mg/dl Creatinine (0.6-1.4) mg/dl Est Cr Clr Drug Dosing ml/min Est GFR ( Amer) Est GFR (Non-Af Amer) BUN/Creatinine Ratio (10-20) Glucose (70-99) mg/dl Calcium (8.5-10.1) mg/dl Magnesium (1.8-2.4) mg/dl Total Bilirubin (0.2-1) mg/dl AST (15-37) U/L ALT (12-78) U/L Alkaline Phosphatase (45-117) U/L Total Creatine Kinase (39-308) U/L C-Reactive Protein (0-0.29) mg/dl Total Protein (6.4-8.2) gm/dl Albumin (3.4-5.0) gm/dl Globulin (2.5-4.0) gm/dl Albumin/Globulin Ratio (0.9-2) TSH (0.300-4.500) uIu/ml Urine Color Yellow Urine Appearance Clear (Clear) Urine pH 5.5 (4.5-7.5) Ur Specific [place] 1.018 (1.000-1.030) Urine Protein Negative (Negative) Urine Glucose (UA) Negative (Negative) Urine Ketones Negative (Negative) Urine Blood Negative (Negative) Urine Nitrite Negative (Negative) Urine Bilirubin Negative (Negative) Urine Urobilinogen Negative (Negative) Ur Leukocyte Esterase Negative (Negative) Lyme Disease IgG Ab Negative (Negative) Lyme Disease IgM Ab Negative (Negative) Administered Medications Sodium Chloride (Nss 1000ml) 1,000 mls @ 200 mls/hr IV .Q5H JOCELYNE Stop: 08/17/18 21:03 Last Admin: 07/18/18 21:50 Dose: 200 mls/hr Documented by: [id number] Lamotrigine (Lamictal) 100 mg PO BID JOCELYNE Stop: 08/17/18 20:59 Last Admin: 07/18/18 21:49 Dose: 100 mg Documented by: [id number] Lurasidone HCl (Latuda) 40 mg PO HS JOCELYNE Stop: 08/17/18 20:59 Last Admin: 07/18/18 21:49 Dose: 40 mg Documented by: [id number] Discontinued Medications Sodium Chloride (Nss 1000ml) 2,000 mls @ 999 mls/hr IV .Q2H1M ONE Stop: 07/18/18 20:53 Last Infusion: 07/18/18 21:58 Dose: 0 mls/hr Documented by: [id number] Infusion: 07/18/18 20:30 Dose: 0 mls/hr Documented by: [id number] Admin: 07/18/18 19:04 Dose: 999 mls/hr Documented by: [id number] Sodium Chloride (Nss 1000ml) 1,000 mls @ 200 mls/hr IV .Q5H STA Stop: 07/18/18 23:52 Last Admin: 07/18/18 21:28 Dose: Not Given Documented by: [id number] ECG Data Attestation: I personally reviewed and interpreted this ECG as follows: Indication: other (body aches) Rate (beats per minute): 89 Rhythm: normal sinus Findings: no PAC, no PVC, no ST depression and no ST elevation Blood Pressure Blood Pressure Findings: Normal blood pressure Discharge Plan Visit Data *Final* Discharge Date/Time: 07/18/18 20:30 Chief Complaint: Referred by Doctor Stated Complaint: ARM/LEG/FEET PAIN - DR SUSPECTS LUPUS ED Provider: Winston Arreola Discharge Problem: Rhabdomyolysis, Arm and leg pain Patient Disposition: Admitted As Inpatient Discharge Instructions Interventions: ED Discharge Assessment Last Done: 07/18/18 20:30 Discharge Problem: Rhabdomyolysis Qualifiers: Rhabdomyolysis type: non-traumatic Qualified Code(s): M62.82 - Rhabdomyolysis The scribe's documentation has been prepared under my direction and personally reviewed by me in its entirety. I confirm that the note above accurately reflects all work, treatment, procedures, and medical decision making performed by me.
[2018-07-19] MEDS: SODIUM CHLORIDE 0.9% 1000ML 1,000 ML IV SCH ×5 (02:11→21:27)
[2018-07-19 06:08] LABS: Basophils # (auto) 0.06 K/uL (0-0.2); Basophils % (auto) 0.8 %; Eosinophils # (auto) 0.32 K/uL (0-0.5); Eosinophils % (auto) 4.4 %; Hematocrit (blood only) 37.9 % (42-52); Hemoglobin 12.9 g/dL (14.0-18.0); Immature Granulocytes # (auto) 0.02 K/uL (0.00-0.02); Immature Granulocytes % (auto) 0.3 %; Lymphocytes # (auto) 3.51 K/uL (1.2-3.4); Lymphocytes % (auto) 48.5 %; Mean Corpuscular Volume 84.6 fL (80-100); Mean Platelet Volume 9.4 fL (7.4-10.4); Monocytes # (auto) 0.69 K/uL (0.11-0.59); Monocytes % (auto) 9.5 %; Neutrophils # (auto) 2.63 K/uL (1.4-6.5); Neutrophils % (auto) 36.5 %; Platelet Count 310 K/uL (130-400); RDW Standard Deviation 39.4 fL (36.4-46.3); Red Blood Count 4.48 M/uL (4.7-6.1); White Blood Count 7.23 K/uL (4.8-10.8)
[2018-07-19 06:44] LABS: Albumin Level 3.4 gm/dl (3.4-5.0); BUN Creatinine Ratio 11.7 (10-20); Calcium 8.5 mg/dl (8.5-10.1); Creatinine Clr Calc Pharmacy 152.6 ml/min; Est GFR (African American) 129.5; Est GFR (Non-African American) 111.8
[2018-07-19 06:47] LABS: Albumin Globulin Ratio 1.1 (0.9-2); Bilirubin,Total 0.4 mg/dl (0.2-1); Globulin 3.1 gm/dl (2.5-4.0); Total Protein 6.5 gm/dl (6.4-8.2)
[2018-07-19] MEDS: lamoTRIgine 100 MG TAB PO SCH ×2 (08:36→21:26)
[2018-07-19] MEDS: BuPROPion XL 300 MG TABCR PO SCH (08:36)
--- NOTE | 2018-07-19 16:50 | Hospitalist Progress Note ---
Date of Service July 19, 2018 Assessment & Plan (1) Rhabdomyolysis: - Has had multiple episodes of rhabdomyolysis - thought to be medication induced which could be accounted for from psychiatric medications -- No trauma, no excessive exercise, no drugs/ETOH - He was on Lamictal during other episodes of rhabdomyolysis so maybe the culprit? Was thought to be Gabapentin-induced previously - CK trending down from 1200 to 950 and will continue aggressive IVF and recheck in AM; Renal function and LFTs are WNL Present on Admission?: Yes (2) Positive ARJUN (antinuclear antibody): - This is self-reported but patient seems to be a good historian - Positive ARJUN could be a false positive vs a sign of underlying autoimmune issues - he is scheduled to see a Utility Tractor Operator on 08/05 in [place] - ARJUN and serology testing was obtained and sent (reference labs) - Denies known family history of autoimmune issues; seems to have a rotating myalgia with rhabdo - maybe some form of autoimmune myositis? CRP is elevated but ESR WNL - Could consider muscle biopsy to further assess but may benefit awaiting his rheumatological appointment Present on Admission?: Yes (3) Bipolar disorder: - Continue Bupropion 300 mg daily; Vistaril 100 mg TID PRN, and Lamictal 100 mg BID -- Has been tapering his Lamictal and adjusted to this dose about a week ago - follows with psychiatry for this with plans to remove this drug altogether - used as a mood stabilizer and not for seizure history Present on Admission?: Yes (4) Nonspecific ST-T wave electrocardiographic changes: - No ACS symptoms - EKG suggestive of possible early repolarization given the vague ST-T wave changes which would be a normal variant given age Present on Admission?: Yes Subjective Reports feeling a bit better today. Continues with some reproducible pain in the L AC region and does seem more muscular than joint. He continues to wean from his Lamictal as his psychiatrist was concerned for Lamictal-induced Lupus. His CK continues to trend down and UO adequate/renal function WNL. Updated father over the phone Review of Systems Constitutional: no fever, no chills and no body aches Eyes: no worsening vision Ear, Nose, Mouth, Throat: no sore throat Respiratory: no cough and no dyspnea Cardiovascular: no chest pain, no palpitations and no edema Gastrointestinal: no abdominal pain, no nausea, no vomiting, no constipation and no diarrhea/loose stools Genitourinary: no dysuria Musculoskeletal: + myalgia; no joint pain, no stiffness and no muscle weakness Integumentary: no rash Neurologic: no tingling and no numbness Physical Exam Constitutional: WD/WN, vitals as above Eyes: + anicteric sclerae ENMT: Ears: no hearing impairment Neck: trachea midline Respiratory: normal respiratory effort, lungs clear to auscultation Cardiovascular: RRR, no murmur, no edema Gastrointestinal (Abdomen): Inspection/Auscultation: normal bowel sounds Percussion/Palpation: abdomen soft; abdomen nontender Musculoskeletal: Head/Neck/Chest: normocephalic, head atraumatic and neck supple R AC region and forearm tender to palpation; no erythema or edema noted to area; cap refill immediate; no rash Skin: no rashes, warm and dry Neurologic: moves all extremities Psychiatric: A+Ox3, euthymic affect Results & Data Vital Signs (Past 12 Hours) Vital Signs Temp Pulse Resp BP BP Pulse Ox 07/19/18 15:45 36.7 C 87 16 130/78 96 07/19/18 08:03 36.5 C 65 16 134/94 97 (1) Rhabdomyolysis Rhabdomyolysis type: non-traumatic Qualified Code(s): M62.82 - Rhabdomyolysis
[2018-07-19] MEDS: LURASIDONE HCL 40 MG TAB PO SCH (21:26)
[2018-07-20] MEDS: SODIUM CHLORIDE 0.9% 1000ML 1,000 ML IV SCH ×2 (03:26→11:11)
[2018-07-20 05:47] LABS: Hematocrit (blood only) 38.1 % (42-52); Hemoglobin 12.8 g/dL (14.0-18.0); Mean Corpuscular Hgb Conc 33.6 g/dL (32-36); Mean Corpuscular Volume 84.1 fL (80-100); Mean Platelet Volume 9.6 fL (7.4-10.4); Platelet Count 322 K/uL (130-400); RDW Coefficient of Variation 12.9 % (11.5-14.5); RDW Standard Deviation 39.2 fL (36.4-46.3); Red Blood Count 4.53 M/uL (4.7-6.1); White Blood Count 7.91 K/uL (4.8-10.8)
[2018-07-20 06:15] LABS: Albumin Level 3.5 gm/dl (3.4-5.0); BUN Creatinine Ratio 16.2 (10-20); Calcium 8.7 mg/dl (8.5-10.1); Creatinine Clr Calc Pharmacy 149.5 ml/min; Est GFR (African American) 126.3
[2018-07-20 06:17] LABS: Bilirubin,Total 0.3 mg/dl (0.2-1); Globulin 3.4 gm/dl (2.5-4.0); Total Protein 6.9 gm/dl (6.4-8.2)
[2018-07-20] MEDS: BuPROPion XL 300 MG TABCR PO SCH (08:38)
[2018-07-20] MEDS: lamoTRIgine 100 MG TAB PO SCH (08:39)
--- NOTE | 2018-07-20 17:22 | Discharge Summary ---
Date of Service July 20, 2018 Admission HPI Per Admitting Provider Patient is a pleasant 23yo M PMH bipolar, anxiety, obesity, who presents with lower leg pain for 2 months. He presented today due to increasing pain on anterior shins from his knee to the top of his feet. He notes this is worsened with activity (walking). He does note some LUE generalized pain as well. Denies trauma to the area. He notes that he is being weaned from lamictal and that his psychiatrist recommended he present to the ER for concerns of drug-induced lupus. Labwork revealed an elevated CK of 1200, CRP of 1.12, and normal LFTs. He denies dark urine. He states this is his 3rd episode of rhabdomyolysis in the past 7 months, and was told by psychiatrist that his gabapentin was previously the cause of this, which he is no longer taking. Admission Exam Per Admitting Provider Constitutional: WD/WN, vitals as above + morbidly obese, cooperative and comfortable; no acute distress, not in distress and not diaphoretic Eyes: PERRL, conjunctivae normal, anicteric sclerae ENMT: external ear and nose normal, oropharynx normal Neck: normal visual inspection Respiratory: normal respiratory effort, lungs clear to auscultation Cardiovascular: RRR, no murmur, no edema Gastrointestinal (Abdomen): normal bowel sounds, soft, nontender, no hepatosplenomegaly Inspection/Auscultation: + abdomen distended Skin: no rashes, warm and dry no lesions, no subcutaneous nodules and no erythema Neurologic: PERRL, EOMI, accommodation nl, no face palsy, no dysarthria Psychiatric: A+Ox3, euthymic affect Principal Diagnosis Rhabdomyolysis Discharge Exam Constitutional WD/WN, vitals as above Eyes + anicteric sclerae ENMT Ears: no hearing impairment Neck trachea midline Respiratory normal respiratory effort, lungs clear to auscultation Cardiovascular RRR, no murmur, no edema Gastrointestinal (Abdomen) Inspection/Auscultation: normal bowel sounds Percussion/Palpation: abdomen soft; abdomen nontender Musculoskeletal Head/Neck/Chest: normocephalic, head atraumatic and neck supple Skin no rashes, warm and dry Neurologic moves all extremities Psychiatric A+Ox3, euthymic affect Discharge Data Allergies Allergy/AdvReac Type Severity Reaction Status Date / Time Bactrim Allergy Mild Rash Verified 04/01/16 06:09 cefadroxil Allergy Mild Rash Verified 07/18/18 17:45 sulfamethoxazole Allergy Mild Rash Verified 07/18/18 17:45 trimethoprim Allergy Mild Rash Verified 07/18/18 17:45 gabapentin AdvReac Severe rhabdomyoly Unverified 07/18/18 17:45 sis Consultations 07/18/18 20:37 ED Decision to Admit Stat Hospital Course (1) Rhabdomyolysis: - Has had multiple episodes of rhabdomyolysis - thought to be medication induced which could be accounted for from psychiatric medications -- No trauma, no excessive exercise, no drugs/ETOH - He was on Lamictal during other episodes of rhabdomyolysis so maybe the culprit? Was thought to be Gabapentin-induced previously - CK trending down from 1200 to 950 and now 833 with no impact on renal/liver function - Recommend continue adequate hydration and limited activity for the week and gradually increase from there; Rx given for BMP/CK recheck in next couple days (2) Positive ARJUN (antinuclear antibody): Positive ARJUN (antinuclear antibody): - This is self-reported but patient seems to be a good historian - Positive ARJUN could be a false positive vs a sign of underlying autoimmune issues - he is scheduled to see a Electric Meter Tester on 08/05 in [place] - ARJUN and serology testing was obtained and sent (reference labs) - when these do populate will call patient however likely would be better interpreted by a Electric Meter Tester if positive findings present - Denies known family history of autoimmune issues; seems to have a rotating myalgia with rhabdo - maybe some form of autoimmune myositis? CRP is elevated but ESR WNL - Could consider muscle biopsy to further assess but may benefit awaiting his rheumatological appointment (3) Bipolar disorder: - Continue Bupropion 300 mg daily; Vistaril 100 mg TID PRN, and Lamictal 100 mg BID -- Has been tapering his Lamictal and adjusted to this dose about a week ago - follows with psychiatry for this with plans to remove this drug altogether - used as a mood stabilizer and not for seizure history (4) Nonspecific ST-T wave electrocardiographic changes: - No ACS symptoms - EKG suggestive of possible early repolarization given the vague ST-T wave changes which would be a normal variant given age Total Time Total Time Spent Total Time Spent (In Minutes): Greater than 30 minutes Discharge Plan Discharge Items Patient Disposition: Home - Self-Care Reason For Visit: RHABDOMYOLISIS Discharge Diagnosis: Rhabdomyolysis Discharge Goals: Decrease discomfort, Improve disease control and Prevent disease Activity: As commented below Lifting: Gradually increase as tolerated Non-emergency contact: Primary Care Provider Call non-emergency contact if: you have any medication questions, your symptoms worsen and your pain is worsening Follow-up/Referrals: [facility] [Primary Care Provider] - 07/27/18 9:00 am (A follow- up appointment has been scheduled on your behalf. Please call [facility] with any questions or to reschedule. ) Diet: Regular Addtl Provider Instructions: Rhabdomyolysis: - It is possible this could be medication induced and possibly the Lamictal was the culprit even on the last episode of this. - At the same time it may be beneficial to have further testing to assess the cause of this. Given the rotating sites of pain and the reoccurrence it may be beneficial to see a Electric Meter Tester. - With your positive ARJUN this may be a rheumatological/autoimmune condition. However, ARJUN can be nonspecific and be falsely positive. We did send out a new ARJUN and other immunological tests but these can take a few days to come back. - When they do populate we can give you a call but the Electric Meter Tester may be the better individual to interpret the tests given the unique nature of immunological conditions. -- One consideration may be to do a muscle biopsy to see if this reveals any inflammatory changes that could shed some light on why this is recurring - Continue to taper the Lamictal per your psychiatrist. If this is medications then this should fix the problem once you are off this medication. - Thankfully your kidney function and liver function tests are in normal limits. The treatment of rhabdomyolysis is hydration and your body will rid itself of the muscle enzyme (creatine kinase) - it can take a week or more to trend down to complete normalcy due to awaiting the body to rid the enzyme. Since your kidney numbers are normal you body will remove the enzyme without issues. - Recommend to keep physical activity light. You may walk and do normal chores but would recommend no weight lifting for at least a week. You can then gradually increase your physical activity but stop if the activity makes pain worse. - Continue to stay hydrated. There really is no set amount of water to drink in a day. The best way to check if you are hydrated is to look at your urine. You want it pale yellow to clear. If it is darker or cloudy then drink more water. - Your CK is now down to 833 and was 1200 when you first came in - Given that your kidney numbers and liver numbers are normal. You could use some Tylenol or Ibuprofen if needed. Could also use some ice to areas as well. Prescriptions: Continued bupropion HCl 300 mg Tablet Extended Release 24 Hr 300 mg PO QAM RF: 0 albuterol sulfate 90 mcg/actuation HFA aerosol inhaler 1 inha INH Q6H Qty: 8 RF: 0 lamotrigine [Lamictal] 200 mg Tablet 100 mg PO BID RF: 0 hydroxyzine pamoate [Vistaril] 50 mg Capsule 100 mg PO HS PRN (Reason: Sleep) RF: 0 Latuda 40 mg Tablet 40 mg PO HS RF: 0 Stand-Alone Forms: [facility] Discharge Orders: Discharge Order (Routine); Ordered 07/20/18 Ordered By: Elenita Napier Admission Data Admit Date/Time: 07/18/18 20:13 Attending Provider: Marcos Pa Admit Provider: Amy Robert Primary Care Provider: [facility] Other Providers: Travon Levine Service: Medical Other Interventions: Discharge Summary Assessment (RN) Last Done: 07/20/18 15:38 Pending Studies at Discharge: Yes Studies:: Immunological Studies DC Date/Time DO NOT enter until pt leaves facility: 07/20/18 16:05 Supervising Physician Co-Signing Physician Notes Attending note: patient seen and examined with Elenita Napier PA-C. I agree with her discharge summary. - Recurrent rhabdomyolysis, non-traumatic resolved with aggressive IV fluids still an unclear etiology, weaning off of Lamictal as possible cause has a positive ARJUN he has a follow up with grief counselor back home for their opinion safe to d/c to home
[2018-07-22 21:43] LABS: Anti Nuclear Antibody Screen POSITIVE (NEGATIVE); B2 Glycoprotein IgA <9 SAU (<=20); B2 Glycoprotein IgG <9 SGU (<=20); B2 Glycoprotein IgM <9 SMU (<=20); Phosphatidylserine IgG <10 U/mL (<10); Phosphatidylserine IgM <25 U/mL (<25)
[2018-07-25 14:06] LABS: ANA Pattern HOMOGENEOUS
== END 2018-07-20 16:05 | disposition home or self-care (01) | DRG 558 ==
LOC: ED 16:17 → SUATTDRO 20:13 → 4E 20:13